=== PATIENT | female | born 1975 | race African-American/Black ===

== ENCOUNTER 2016-12-30 22:43 | Emergency (ER) | payer OTHER ==
[~2016-12-30] VITALS: Ht 157.5 cm; Wt 88.0 kg
[~2016-12-30 22:43] MED LIST: AUGMENTIN500 MG PO; COLACE100 MG PO; DICLEGIS DR 101 EACH PO; IBUPROFEN800 MG PO; IRON325 M1 PO; NOHOMEMEDS; NORVIR100 M1 PO; ONDANSETRON HCL8 MG PO; PRENATAL TABLE1 EAC3 PO; REYATAZ300 MG PO; STRIBILD TABLE1 EACH PO; Slow Fe PO; TRUVADA1 TABLET PO; ZANTAC150 MG PO; ZOFRAN ODT8 MG PO
[2016-12-31 00:10] LABS: ADD MIUA? NO; BILIRUBIN NEGATIVE; BLOOD NEGATIVE; COLOR STRAW ((YELLOW)); GLUCOSE (STRIP) NEGATIVE; KETONES NEGATIVE; LEUKOCYTES NEGATIVE; NITRITE NEGATIVE; PROTEIN (STRIP) NEGATIVE; SPECIFIC GRAVITY 1.005 (1.000-1.030); UROBILINOGEN 0.2 MG/DL (0.2-1.0)
[2016-12-31 01:06] LABS: EOSINOPHIL (%) 1.7 % (0-5); EOSINOPHIL COUNT 0.1 K/uL (0-0.3); HEMATOCRIT 38.9 % (36.0-46.0); IMMATURE GRANULOCYTE (%) 0.6 % (0.0-0.7); INSTRUMENT ABS NEUTROPHIL CT 2.8 K/uL; LYMPHOCYTE COUNT 2.9 K/uL (1.0-2.8); MCH 30.3 PG (29.0-34.0); MCHC 34.2 G/DL (30.0-36.0); MCV 88.6 FL (83-99); MEAN PLAT.VOLUME 9.8 uM^3 (9.5-12.4); MONOCYTE (%) 8.9 % (3-12); MONOCYTE COUNT 0.6 K/uL (0-0.8); NEUTROPHIL (%) 43.1 % (45-76); NEUTROPHIL COUNT 2.8 K/uL (1.8-6.4); PLATELET COUNT 266 K/uL (156-360); RBC DIS.WIDTH-CV 12.3 % (11.8-14.6); RBC DIS.WIDTH-SD 39.6 % (39-53); RED BLOOD COUNT 4.39 M/uL (3.80-5.20); WHITE BLOOD COUNT 6.4 K/uL (4.1-10.2)
[2016-12-31 01:14] LABS: CHLORIDE 103 mEq/L (99-109); POTASSIUM 4.1 mEq/L (3.7-5.4); SODIUM 139 mEq/L (136-147)
[2016-12-31 01:16] LABS: GLUCOSE 94 mg/dL (70-99)
[2016-12-31 01:17] LABS: ANION GAP 8 MEQ/L (2-14)
[2016-12-31 01:18] LABS: TOTAL BILIRUBIN 0.5 mg/dL (0.0-1.0)
[2016-12-31 01:19] LABS: ALKALINE PHOSPHATASE 66 IU/L (3-129)
[2016-12-31 01:21] LABS: GFR ESTIMATE (CALCULATED) > 59 mL/min/; UREA NITROGEN (BUN) 11 mg/dL (9-23)
[2016-12-31 01:38] LABS: QUANTITATIVE HCG < 4.0 MIU/ML
[2016-12-31] MEDS ORDERED: ANTIVERT25 MG PO (01:41)
[2016-12-31] MEDS ORDERED: FLONASE16 G1 BOTH NARES (01:41)
[2016-12-31] MEDS ORDERED: MUCINEX D ER T1 EACH PO (01:41)
[2016-12-31 01:57] VITALS: BP 130/61
== END 2016-12-31 01:58 | disposition home or self-care (01) ==
LOC: EME 22:43
PROVIDERS: Physician Assistant
DX: R53.81 Other malaise (principal); R53.83 Other fatigue; H65.03 Acute serous otitis media, bilateral; R42 Dizziness and giddiness; R11.0 Nausea; R05 Cough; B20 Human immunodeficiency virus [HIV] disease
CPT/HCPCS: 80053; 81003; 84443; 84702; 85025; 93005; 99281; 99283

== ENCOUNTER 2017-08-26 23:51 | Emergency (ER) | payer OTHER ==
[~2017-08-26] VITALS: Ht 157.5 cm; Wt 90.2 kg
[~2017-08-26 23:51] MED LIST changes: +ANTIVERT25 MG PO; +FLONASE16 G1 BOTH NARES; +MUCINEX D ER T1 EACH PO
[2017-08-26 23:53] VITALS: BP 139/86
[2017-08-27] MEDS ORDERED: MOTRIN600 MG PO (00:16)
[2017-08-27] MEDS ORDERED: SKELAXIN800 MG PO (00:16)
== END 2017-08-27 00:43 | disposition home or self-care (01) ==
LOC: EME 23:51
DX: S39.012A Strain of muscle, fascia and tendon of lower back, initial encounter (principal); X50.1XXA Overexertion from prolonged static or awkward postures, initial encounter; Y93.F9 Activity, other caregiving; Y99.0 Civilian activity done for income or pay
CPT/HCPCS: 99281; 99284; J1885